=== PATIENT | female | born 2000 | race Caucasian/White ===

== ENCOUNTER 2023-10-10 09:06 | Emergency (ER) | payer BC ==
[2023-10-10] MEDS ORDERED: Naloxone 2 MG/2 ML Syringe IVPUSH PRN (09:37)
[2023-10-10] MEDS: Aspirin 81 MG Tab.Chew PO ONE (09:40)
[2023-10-10 10:40] LABS: BASOPHILS ABSOLUTE AUTO 0.01 K/uL (0.02-0.10); BASOPHILS PERCENT AUTO 0.2 % (0.0-0.5); EOSINOPHILS ABSOLUTE AUTO 0.01 K/uL (0.04-0.40); EOSINOPHILS PERCENT AUTO 0.2 % (1.0-5.0); HEMATOCRIT 49.1 % (37.0-47.0); HEMOGLOBIN 15.7 g/dL (11.5-16.5); LYMPHOCYTES ABSOLUTE AUTO 1.32 K/uL (1.50-4.00); LYMPHOCYTES PERCENT AUTO 21.9 % (20.0-40.0); MEAN CORPUSCULAR HEMOGLOBIN 25.4 pg (27.0-32.0); MEAN CORPUSCULAR VOLUME 80 fL (76-96); MEAN PLATELET VOLUME 10.5 fL (6.0-10.0); MONOCYTES ABSOLUTE AUTO 0.28 K/uL (0.20-0.80); MONOCYTES PERCENT AUTO 4.6 % (3.0-10.0); NEUTROPHILS ABSOLUTE AUTO 4.41 K/uL (2.00-7.50); NEUTROPHILS PERCENT AUTO 73.1 % (45.0-70.0); PLATELET COUNT,PLT 329 K/uL (150-500); RED BLOOD CELL COUNT 6.17 M/uL (3.80-5.80); RED CELL DISTRIBUTION WIDTH 15.9 % (11.0-16.0)
[2023-10-10] MEDS: Morphine 2 MG/ML SYRINGE IM SCH (10:47)
[2023-10-10 10:52] LABS: INR 1.2 (1.0-3.5)
[2023-10-10 10:58] LABS: A/G RATIO 1.1 (0.8-2.0); ALBUMIN 5.1 g/dL (3.4-5.0); ANION GAP 21.6 mmol/L (5.0-15.0); BILIRUBIN TOTAL 1.1 mg/dL (0.0-1.0); BUN/CREATININE RATIO 26.3 (6-25); CALCIUM 9.8 mg/dL (8.5-10.1); CARBON DIOXIDE,CO2 17.1 mmol/L (21.0-32.0); CREATININE 0.76 mg/dL (0.55-1.02); EST CRCL DRUG DOSING (CG) 95.23 mL/min; POTASSIUM,K 3.7 mmol/L (3.5-5.1); PROTEIN TOTAL,TP 9.6 g/dL (6.4-8.2)
[2023-10-10] MEDS: Morphine 2 MG/ML SYRINGE IVPUSH ONE (10:59)
[2023-10-10] MEDS: Morphine 4 MG/ML VIAL ONE (10:59)
[2023-10-10 11:01] LABS: PROTHROMBIN TIME 12.3 sec (9.0-11.5)
[2023-10-10 11:09] LABS: APPEARANCE,URINE SLIGHTLY CLOUDY (CLEAR); BILIRUBIN,URINE NEGATIVE (NEGATIVE); COLOR,URINE YELLOW; GLUCOSE,URINE NEGATIVE (NEGATIVE); KETONES,URINE >=160 mg/dL (NEGATIVE); LEUKOCYTE ESTERASE,URINE NEGATIVE (NEGATIVE); NITRITE,URINE NEGATIVE (NEGATIVE); OCCULT BLOOD,URINE TRACE-LYSED (NEGATIVE); PH,URINE 5.5 (5.0-8.0); PROTEIN,URINE 30 mg/dL (NEGATIVE); UROBILINOGEN,URINE 0.2 E.U./dL (0.2-1.0)
[2023-10-10 11:17] LABS: BACTERIA,URINE FEW /HPF; RBC,URINE 0-5 /HPF; SQUAMOUS EPITHELIAL CELLS,UR FEW /HPF; WBC,URINE NOT SEEN /HPF
[2023-10-10 11:18] LABS: AMORPHOUS SEDIMENT,URINE FEW /HPF
[2023-10-10 11:19] LABS: AMPHETAMINES SCREEN, URINE NEGATIVE (NEGATIVE); BARBITURATE SCREEN,URINE NEGATIVE (NEGATIVE); BENZODIAZEPINES SCREEN,URINE NEGATIVE (NEGATIVE); METHADONE SCREEN, URINE NEGATIVE (NEGATIVE); METHAMPHETAMINES SCREEN, URINE NEGATIVE (NEGATIVE); OXYCODONE SCREEN,URINE NEGATIVE (NEGATIVE); THC SCREEN,URINE 50 NG/ML NEGATIVE (NEGATIVE)
[2023-10-10] MEDS: LORazepam 1 MG Tab ONE (11:31)
[2023-10-10] MEDS: LORazepam 1 MG Tab PO ONE (11:32)
[2023-10-10] MEDS: Sodium Chloride 0.9% 500 ML IV ONE (14:15)
== END 2023-10-10 16:15 | disposition home or self-care (01) ==
LOC: LB.ED 09:06
DX: F41.9 Anxiety disorder, unspecified (principal); R45.851 Suicidal ideations
CPT/HCPCS: 36415; 80053; 80307; 81001; 81025; 83735; 84484; 85025; 85379; 85610; 85730; 93005; 93010; 96372; 99284; 99285; A9270-GY; J2270; J7040